=== PATIENT | female | born 1955 | race Hispanic/Latino ===

== ENCOUNTER → 2018-03-31 | Outpatient (CLI) | payer OTHER ==
[~2018-03-31] MED LIST: CALCIUM PO; FOLIC ACID1 MG PO; GLIMEPIRIDE2 MG PO; LISINOPRIL10 MG PO; METFORMIN HCL850 MG PO; VITAMIN B-121000 MCG PO; VITAMIN D1000 UNI1 PO
--- NOTE | 2018-04-04 08:36 | Diagnostic Imaging Report ---
#[id number] - MGSCRBIL #BILATERAL DIGITAL SCREENING MAMMOGRAM WITH CAD: 03/31/2018 CLINICAL: Routine screening. Comparison is made to exams dated: 03/30/2017 mammogram and 02/13/2015 mammogram - [facility]. Current study contains 4 films. There are scattered fibroglandular elements in both breasts. Current study was also evaluated with a Computer Aided Detection (CAD) system. There are benign calcifications in both breasts. There also are benign vascular calcifications in the right breast. No significant masses, calcifications, or other findings are seen in either breast. There has been no significant interval change. IMPRESSION: BENIGN There is no mammographic evidence of malignancy. A 1 year screening mammogram is recommended. The patient will be notified by letter of the results. Jack marlow/britt:04/01/2018 14:23:13 Water Pump Operator: Jacqueline EDWARDS)(Katerine), [facility] letter sent: Compared to Prior B9 Mammogram BI-RADS: 2 Benign
== END ==
LOC: MAMMO 09:51
PROVIDERS: ATTEND Internal Medicine
DX: Z12.31 Encounter for screening mammogram for malignant neoplasm of breast (principal)
CPT/HCPCS: 77067

== ENCOUNTER 2019-11-19 01:19 | Emergency (ER) | payer OTHER ==
--- NOTE | 2019-11-19 01:49 | Emergency Department Note ---
History of Present Illnes History of Present Illness Chief Complaint: Hypertension History of Present Illness This is a 63 year old female arrives the ED because of blood pressure is high at home. Patient states her blood pressures 160/70 and she was concerned she may have a stroke. Patient states her brother had a stroke which is what prompted her to come to the ED. Patient is on 10 mg lisinopril and admits to compliance. Patient is a diabetic on metformin and glipizide, sugar this morning prior to arrival was 112. Historian: Patient Arrival Mode: Car Onset (how long ago): minute(s) Radiation: Reports non-radiation Onset quality: gradual Timing of current episode: unable to specify Progression: unable to specify Context: Denies recent illness Relieving factors: none Exacerbating factors: none Past Medical/Family History Physician Review I have reviewed the patient's past medical and family history. Any updates have been documented here. Past Medical History Recent Fever: No Clinical Suspicion of Infectio: No New/Unexplained Change in Ment: No Past Medical History: Hypertension, Diabetes Social History Smoking Cessation: Never Smoker Counseling Performed: No Alcohol Use: Social Review of Systems Review of Systems Constitutional: Reports no symptoms EENTM: Reports no symptoms Cardiovascular: Reports no symptoms Respiratory: Reports no symptoms Gastrointestinal: Reports no symptoms Genitourinary: Reports no symptoms Musculoskeletal: Reports no symptoms Integumentary: Reports no symptoms Neurological: Reports no symptoms Psychological: Reports no symptoms Endocrine: Reports no symptoms Hematological/Lymphatic: Reports no symptoms Physical Exam Related Data Allergies: Coded Allergies: No Known Allergies (Unverified , 01/29/14) Triage Vital Signs Vital Signs Date Time Temp Pulse Resp B/P (MAP) Pulse Ox O2 Delivery O2 Flow Rate FiO2 7/5/20 01:31 98.3 87 18 167/91 99 Room Air Vital signs reviewed: Yes Physical Exam CONSTITUTIONAL Constitutional: Present well-developed, Present well-nourished HENT HENT: Present normocephalic, Present atraumatic, Present oropharynx clear/moist, Present nose normal HENT L/R: Present left ext ear normal, Present right ext ear normal EYES Eyes: Reports PERRL, Reports conjunctivae normal NECK Neck: Present ROM normal PULMONARY Pulmonary: Present effort normal, Present breath sounds normal CARDIOVASCULAR Cardiovascular: Present regular rhythm, Present heart sounds normal, Present capillary refill normal, Present normal rate GASTROINTESTINAL Abdominal: Present soft, Present nontender, Present bowel sounds normal GENITOURINARY Genitourinary: Present exam deferred SKIN Skin: Present warm, Present dry MUSCULOSKELETAL Musculoskeletal: Present ROM normal NEUROLOGICAL Neurological: Present alert, Present oriented x 3, Present no gross motor or sensory deficits PSYCHOLOGICAL Psychological: Present mood/affect normal, Present judgement normal Assessment & Plan Medical Decision Making MDM 63-year-old well-appearing female arrives to the ED with concerns of high blood pressure, patient is asymptomatic no concerns of life-threatening processes time of evaluation. Spoke to patient at length about concerns associated with high blood pressure, expressed understanding. Patient stable for discharge home. Assessment & Plan Final Impression: (1) Hypertension Depart Disposition: HOME, SELF-CARE Last Vital Signs Date Time Temp Pulse Resp B/P (MAP) Pulse Ox O2 Delivery O2 Flow Rate FiO2 11/19/19 01:31 98.3 87 18 167/91 99 Room Air Home Meds Reported Medications Cholecalciferol (Vitamin D3) (VITAMIN D) 1,000 Unit Tablet, 1000 UNIT PO DAILY, #30 TAB 01/29/14 [Calcium] No Conflict Check, PO DAILY 01/29/14 Folic Acid (FOLIC ACID) 1 Mg Tablet, 1 MG PO DAILY, #30 TAB 01/29/14 Cyanocobalamin (VITAMIN B-12) 1,000 Mcg Tab, 1000 MCG PO DAILY, #30 TAB 01/29/14 Lisinopril (LISINOPRIL) 10 Mg Tablet, 10 MG PO DAILY, #30 TAB 01/29/14 Glimepiride (GLIMEPIRIDE) 2 Mg Tablet, 2 MG PO DAILY, TAB 01/29/14 Metformin Hcl (METFORMIN HCL) 850 Mg Tablet, 850 MG PO BID, #30 TAB 01/29/14 CANDACE JIMENEZ DO Nov 19, 2019 01:49
== END 2019-11-19 01:43 | disposition home or self-care (01) ==
LOC: ER 01:42
DX: I10 Essential (primary) hypertension (principal); E11.9 Type 2 diabetes mellitus without complications
CPT/HCPCS: 99282

== ENCOUNTER → 2020-01-10 | Outpatient (CLI) | payer OTHER ==
--- NOTE | 2020-01-12 09:26 | Diagnostic Imaging Report ---
#[id number] - MGSCRBIL #BILATERAL DIGITAL SCREENING MAMMOGRAM WITH CAD: 01/10/2020 CLINICAL: Routine screening. Comparison is made to exams dated: 03/31/2018 mammogram, 03/30/2017 mammogram and 01/08/2014 mammogram - [facility]. The tissue of both breasts is heterogeneously dense. This may lower the sensitivity of mammography. Current study was also evaluated with a Computer Aided Detection (CAD) system. There are benign calcifications in both breasts. There also are benign lymph nodes in both breasts. Additionally there are benign vascular calcifications in the right breast. No significant masses, calcifications, or other findings are seen in either breast. There has been no significant interval change. IMPRESSION: BENIGN There is no mammographic evidence of malignancy. A 1 year screening mammogram is recommended. The patient will be notified by letter of the results. DONITA galo/britt:01/11/2020 10:26:10 Machine Stuffer: Jacqueline WAN(Jayde)(Katerine), [facility] letter sent: Compared to Prior B9 Mammogram BI-RADS: 2 Benign
== END ==
LOC: MAMMO 09:54
PROVIDERS: ATTEND Internal Medicine
DX: Z12.31 Encounter for screening mammogram for malignant neoplasm of breast (principal)
CPT/HCPCS: 77067